=== PATIENT | female | born 1970 | race African-American/Black ===

== ENCOUNTER 2019-12-28 15:36 | Inpatient (IN) | payer OTHER, SELFPAY ==
--- NOTE | ~2019-12-28 | XR_ITS ---
EXAMINATION: XR chest 1V portable INDICATION: Fever and chills TECHNIQUE: Portable AP chest at 1708 hours COMPARISON: None available FINDINGS: The lungs are free of acute opacities. There is no pleural effusion or pneumothorax. The ca rdiomediastinal silhouette is normal. The visualized bones and soft tissues are unremarkable. IMPRESSION: 1. No acute cardiopulmonary abnormality. Reviewed, dictated and finalized at location A.
--- NOTE | ~2019-12-28 | CT_ITS ---
EXAMINATION: CT abdomen pelvis wo con DATE: 12/28/2019 18:33 INDICATION: Pyelonephritis, history of kidney stones TECHNIQUE: Computed tomography (CT) of the abdomen and pelvis was performed without intravenous contr ast. The dose-length product (DLP) was 1134.33 mGy-cm. Automated exposure control and iterative recon struction technique were employed. COMPARISON: None FINDINGS: The lung bases are clear. The heart size is normal. There is a small sliding hiatal hernia. The gallbladder is surgically absent. The liver, spleen, pancreas, and adrenal glands are normal. Th ere is a 2 mm nonobstructing stone of the right kidney lower pole. No stones are present in the urete rs or bladder. There is no hydronephrosis or hydroureter. There is enlargement of the left kidney whe n compared to the right with mild left perinephric fat stranding. No pathologically enlarged abdomina l or pelvic lymph nodes are identified. There is no free intraperitoneal gas or evidence of bowel obs truction. The appendix is normal. Calcified uterine fibroids are noted. There is moderate lumbar spon dylosis. IMPRESSION: 1. CT findings suggestive of left pyelonephritis. 2. Nonobstructing right nephrolithiasis. Reviewed, dictated and finalized at location A.
[2019-12-28 16:02] VITALS: BP 145/71; PULSE 116; RESP 19; TEMP 39.1; O2SAT 99
--- NOTE | 2019-12-28 16:06 | ECG_ITS ---
Measurements Intervals [place] Rate: 114 P: 13 TX: 116 QRS: 140 QRSD: 94 T: -10 QT: 342 QTc: 472 Interpretive Statements SINUS TACHYCARDIA WITH SHORT TX INTERVAL RIGHT AXIS DEVIATION POSSIBLE LEFT ATRIAL ENLARGEMENT BORDERLINE R WAVE PROGRESSION, ANTERIOR LEADS INFERIOR INFARCT, AGE INDETERMINATE BORDERLINE T WAVE ABNORMALITY- ANTERIOR LEADS ABNORMAL ECG Electronically Signed On 12-28-2019 18:20:52 CDT by Umair Licona D.O.
[2019-12-28 16:37] LABS: Basophils Percent Auto 0.3 % (0.2-1.2); Eosinophils Percent Auto 0.2 % (0-4.4); Hemoglobin 12.9 g/dL (12.0-15.0); Immature Granulocyte Absolute 0.07 K/mm3 (0.00-0.031); Immature Granulocyte Percent A 0.5 % (0-0.5); Lymphocytes Absolute Auto 0.82 K/mm3 (0.9-3.2); Lymphocytes Percent Auto 5.6 % (18.3-44.2); Mean Corpuscular HGB Conc 33.1 g/dl (32-36); Mean Corpuscular Hemoglobin 30.6 pg (26-34); Mean Corpuscular Volume 92.4 fl (80-100); Mean Platelet Volume 9.5 fl (7.4-10.4); Monocytes Percent Auto 6.6 % (2.6-8.5); Neutrophils Absolute Auto 12.8 K/mm3 (1.3-6.7); Neutrophils Percent Auto 86.8 % (45.5-73.1); Platelet Count Result 233 k/mm3 (150-375); Red Blood Count 4.22 M/mm3 (4.2-5.4); White Blood Count 14.7 K/mm3 (4.5-10.0)
[2019-12-28 16:43] LABS: Add Urine Microscopic? YES; Amorphous Sediment Urine Few; Appearance Urine Cloudy (Clear); Bacteria Urine Trace /hpf; Bilirubin Urine Negative (Negative); Blood Urine 2+ (Negative); Color Urine Yellow (Yellow); Glucose Urine UA Negative (Negative); Ketones Urine Negative (Negative); Leukocyte Esterase Ur 2+ LEU/UL (Negative); Mucus Urine Rare /lpf; Nitrate Urine Negative (Negative); Protein Urine 2+ mg/dL (Negative); Specific Grav Ur 1.014 (1.001-1.035); Squamous Epithelial Cell Urine Moderate /hpf (Few); Urobilinogen Urine Negative mg/dL (<2.0); WBC Urine 51-75 /hpf
[2019-12-28 16:44] LABS: Prothrombin Time 12.9 Seconds (11.1-14.7)
[2019-12-28 16:45] LABS: Partial Thromboplastin Time 26.4 SECONDS (22.3-36.8)
[2019-12-28 16:46] LABS: Lactic Acid Reflex 2.1 mmol/L (0.7-2.1)
[2019-12-28 16:50] LABS: Alanine Aminotransferase 21 U/L (4-35); Albumin Level 4.4 g/dL (3.5-5.1); Alkaline Phosphatase 69 U/L (38-126); Aspartate Amino Transferase 23 U/L (14-36); Bilirubin,Total 0.9 mg/dL (0.2-1.3); Blood Urea Nitrogen 12 mg/dL (7-17); CRP 2.7 mg/dL (<1.0); Calcium 8.9 mg/dL (8.4-10.2); Carbon Dioxide 26 mmol/L (22-30); Chloride 103 mmol/L (98-107); Estimated CRCL calculation 81 ml/min; Estimated Glomerular Filt Rate > 60; Glucose 158 mg/dL (65-105); Potassium 3.4 mmol/L (3.4-5.0); Sodium 138 mmol/L (137-145)
--- NOTE | 2019-12-28 17:57 | ED.FEVER ---
HPI - Fever General Chief Complaint: Back Pain/Injury Stated Complaint: Chills, Lower Back Pain Time Seen by Provider: 12/28/19 17:38 Source: patient Mode of arrival: EMS Limitations: no limitations History of Present Illness HPI Narrative: Patient is a 49-year-old female who presents to the emergency department with complaint of severe chills and sudden onset of bilateral lower back pain. Patient was at work and got into the break room and suddenly felt very cold. Patient initially thought it was just because of break room is usually cold, but then developed shaking chills and rigors and back pain that was fairly severe. Denies any dysuria, hematuria, urinary frequency, abdominal pain, nausea, vomiting, diarrhea, cough, shortness of breath, or cold symptoms. Patient reports a mild headache currently. She denies any diffuse myalgias but does report she has some mild aching in her shoulders, which she attributes to her significant shaking and rigors. Patient denies any sick contacts at home. 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 Patient has been wearing a mask while she is at work. MD elicited complaint: fever Onset (ago): minute(s) Associated symptoms: chills, rigors, headache and back/flank pain Related Data Home Medications Medication Instructions Recorded Confirmed No Home Medications 12/28/19 12/28/19 Allergies Allergy/AdvReac Type Severity Reaction Status Date / Time Sulfa (Sulfonamide AdvReac Severe Rash Verified 12/28/19 17:01 Antibiotics) Review of Systems Review of Systems: All systems reviewed & are unremarkable except as noted in HPI and below Constitutional: Constitutional: Reports chills and Reports fever(s) ENT: Denies nasal discharge and Denies sore throat Cardiovascular: Cardiovascular: Denies chest pain Respiratory: Respiratory: Denies cough and Denies dyspnea Gastrointestinal: Gastrointestinal: Denies abdominal pain, Denies diarrhea, Denies nausea and Denies vomiting Genitourinary: Genitourinary: Denies hematuria, Denies nocturia, Denies dysuria and Reports flank pain Musculoskeletal: Musculoskeletal: Reports back pain Neurologic: Reports headache(s) [facility] Past Medical History Medical History (Updated 12/28/19 @ 18:14 by Marjorie Evans MD) Kidney stones Surgical History Surgical History (Updated 12/28/19 @ 18:10 by Marjorie Evans MD) History of section History of cholecystectomy History of endometrial ablation History of lithotripsy History of tubal ligation Social History Social History (Updated 12/28/19 @ 18:11 by Marjorie Evans MD) Additional occupation/education comments: Works at [employer] as a [employer] Exam Const: General: cooperative, no acute distress and alert Nutritional Appearance: obese Orientation/consciousness: patient oriented x3 Limitations: no limitations Eyes: Conjunctivae: conjunctivae normal Pupils: Equal, round and reactive pupils present Resp: Effort & Inspection: normal respiratory effort Auscultation: clear to auscultation bilaterally Cardio: Rate: tachycardic Rhythm: regular rhythm GI: GI Palp: Yes Soft to palpation and No Tenderness to palpation present (GI) Auscultation: normal bowel sounds : General: Yes CVA tenderness bilateral Skin: General skin exam: normal color and no rashes or lesions noted Neuro: General: patient oriented x3 Cognition (Neuro): normal cognition Speech: normal speech Extrem: General: normal to inspection, full ROM and no clubbing, cyanosis or edema Psych: Mental Status: mental status grossly normal Affect: normal affect Attitude: cooperative 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 Patient will be sent for CT scan to evaluate for kidney/ureteral stones gi
[2019-12-28] MEDS: LACTATED RINGERS 1,000 ML 999 ML IV CONT (18:22)
[2019-12-28 18:54] VITALS: BP 162/97; PULSE 94; RESP 20; O2SAT 98
[2019-12-28 19:32] LABS: Reflex Lactic Acid Yes or No Add Lactic
[2019-12-28 19:39] VITALS: TEMP 37.1
[2019-12-28 20:09] VITALS: BP 160/88; PULSE 86; RESP 20; O2SAT 99
[2019-12-28 20:10] VITALS: BP 146/95; PULSE 85; RESP 18; TEMP 37.8; O2SAT 98; BMI 37.6
--- NOTE | 2019-12-28 20:10 | ADMGEN ---
This patient, Priscilla Ware, was admitted to 3 [facility] Surg Room 301-01. Patient/family oriented to hospital policies and general routines including ID bracelet, bed and alarms, visiting hours, pain management, procedures, bathroom and other care routines, personal items, smoking policy, room service/diet, and visiting hours. Valuables list has been completed. Information on how to activate the Rapid Response Team has been discussed. Patient/Family are encouraged to report perceived risks to care and to ask questions if they do not understand what they are told or what they should do.
[2019-12-28] MEDS: LACTATED RINGERS 1,000 ML 150 ML IV CONT (20:50)
[2019-12-28 22:00] VITALS: BP 149/98; PULSE 89; RESP 18; TEMP 37.6; O2SAT 96
--- NOTE | 2019-12-28 22:50 | PM.IMHP ---
H&P: HPI History of Present Illness Chief complaint: Sudden chills and low back pain. Narrative: Priscilla Ware is a pleasant 49-year-old female with untreated obstructive sleep apnea and history of urinary tract infections and kidney stones who presented to the emergency department earlier this evening via EMS from her place of employment for evaluation of sudden onset chills and low back pain. She was in her usual state of health this morning and reported to work at [employer]. Not long prior to arrival, she and a co-worker went to the break room to eat lunch. They both noted that it was cold in the break room and put on their coats. The patient then began having shaking chills and what sounds like rigors, followed by severe left-sided low back pain. On arrival to the emergency department she was febrile with a temperature of 102.4?. CT of the abdomen and pelvis demonstrated findings of pyelonephritis and her urinalysis does confirm urinary tract infection. With further questioning, she does mention increased urinary frequency overnight but she denies dysuria, urgency, and hesitancy. She denies abdominal pain, nausea, vomiting, and diarrhea. 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 She denies cough and shortness of breath. She has been wearing a mask at work and is very diligent about keeping her hands clean. No known exposure to those positive for COVID 19. Review of Systems Review of Systems: Narrative: Twelve systems were reviewed with pertinent positives and negatives as per HPI. Complaining of a mild headache at this time. No lightheadedness or dizziness. No chest pain or shortness of breath. Denies anosmia and dysgeusia. She had a CPAP previously for sleep apnea, but stopped using that not long after her brother . She goes on to say that her brother was on life support for quite some time before he passed from a cerebral aneurysm, and she believe she has posttraumatic stress from seeing him on the ventilator, and says she just cannot use the CPAP anymore. Except as documented, all other systems were reviewed and are negative. [facility] Past Medical History Medical History (Updated 12/29/19 @ 00:04 by Annette Drew PA-C) Kidney stones Obstructive sleep apnea Patient does not use her CPAP as detailed in the review of systems. Surgical History Surgical History History of section History of cholecystectomy History of endometrial ablation History of lithotripsy History of tubal ligation Family History Family History (Updated 12/29/19 @ 00:03 by Annette Drew PA-C) Father Acute myocardial infarction Sibling Cerebral aneurysm Social History Social History (Updated 12/28/19 @ 18:11 by Marjorie Evans MD) Smoking status: Never smoker Second hand tobacco smoke exposure: No Alcohol intake: current Substance use: never Other substance usage details: social drinker Additional occupation/education comments: Works at [employer] as a [employer] Spiritual care concerns: No Meds Home Medications and Allergies Home Medications Medication Instructions Recorded Confirmed Type No Home Medications 12/28/19 12/28/19 History Allergies Allergy/AdvReac Type Severity Reaction Status Date / Time Sulfa (Sulfonamide AdvReac Severe Rash Verified 12/28/19 20:48 Antibiotics) Vital Signs Vital Signs - 24 hr 12/28/19 16:02 12/28/19 18:54 12/28/19 19:39 Temperature 102.4 F H 98.8 F Pulse Rate 116 H 94 Respiratory Rate 19 20 Blood Pressure 145/71 H 162/97 H Pulse Oximetry 99 98 12/28/19 20:09 12/28/19 20:10 12/28/19 22:00 Temperature 100.0 F H 99.6 F Pulse Rate 86 85 89 Respiratory Rate 20 18 18 Blood Pressure 160/88 H 146/95 H 149/98 H Pulse Oximetry 99 98 96 Exam Narrative: Exam Narrative: General:
[2019-12-29] MEDS: ACETAMINOPHEN 325 MG TABLET 650 MG PO ×3 (00:13→21:21)
[2019-12-29 00:40] LABS: Hemoglobin A1C 5.6 % (<5.7)
[2019-12-29 03:18] VITALS: TEMP 37.3
[2019-12-29] MEDS: LACTATED RINGERS 1,000 ML 100 ML IV CONT ×2 (05:05→15:17)
[2019-12-29 05:58] VITALS: BP 138/87; PULSE 81; RESP 16; TEMP 37.6; O2SAT 95
[2019-12-29 14:35] VITALS: BP 130/85; PULSE 87; RESP 17; TEMP 36.7; O2SAT 100
--- NOTE | 2019-12-29 16:32 | PM.IMPN ---
Progress Note: A&P Assessment and Plan (1) Sepsis: Qualifiers: Sepsis acute organ dysfunction status: without acute organ dysfunction Sepsis type: sepsis due to unspecified organism Qualified Code(s): A41.9 - Sepsis, unspecified organism Code(s): A41.9 - Sepsis, unspecified organism Status: Acute Assessment and Plan: Present on admission supported by fever, tachycardia, and leukocytosis in the setting of pyelonephritis. Lactic acid level is within normal limits and blood cultures have been obtained and are pending. Vital signs were reviewed and they are stable. 12/29/19 16:32 Patient is a 49-year-old female being treated for pyelonephritis with Rocephin, will follow-up on urine culture and sensitivity further recommendation to follow, is feeling little better abdominal pain is improving currently denies any nausea or vomiting fever or chills wants to go home (2) Pyelonephritis: Code(s): N12 - Tubulo-interstitial nephritis, not specified as acute or chronic Status: Acute Assessment and Plan: She has been started on ceftriaxone, pending urine culture. (3) Hyperglycemia: Code(s): R73.9 - Hyperglycemia, unspecified Status: Acute Assessment and Plan: This is a nonfasting level. Will check BMP in a.m. as well as A1c. Patient A1c 5.6 unlikely patient has diabetes Subjective Date/time seen: 12/29/19 16:32 Patient is a 49-year-old female being treated for pyelonephritis with Rocephin, is feeling little better abdominal pain is improving currently denies any nausea or vomiting fever or chills wants to go home Review of Systems Review of Systems: All systems reviewed & are unremarkable except as noted in HPI and below Exam Narrative: Exam Narrative: Moderately obese Const: General: no acute distress and uncomfortable HENMT: General nose exam: Normal nares present Mouth: Yes moist mucous membranes Eyes: General: appearance normal, both eyes and all related structures Sclera: sclerae normal Neck: Neck: supple Resp: Effort & Inspection: normal respiratory effort Auscultation: clear to auscultation bilaterally Cardio: Rate: regular rate Rhythm: regular rhythm GI: Auscultation: normal bowel sounds Other: Diffusely tender Skin: General skin exam: normal color Neuro: Speech: normal speech Sensory Exam: normal sensation Extrem: General: normal to inspection Psych: Affect: Anxious affect present Objective Data Vital Signs Vital Signs: Vital Signs - 24 hr 12/28/19 18:54 12/28/19 19:39 12/28/19 20:09 Temperature 98.8 F Pulse Rate 94 86 Respiratory Rate 20 20 Blood Pressure 162/97 H 160/88 H Pulse Oximetry 98 99 12/28/19 20:10 12/28/19 22:00 12/29/19 03:18 Temperature 100.0 F H 99.6 F 99.2 F Pulse Rate 85 89 Respiratory Rate 18 18 Blood Pressure 146/95 H 149/98 H Pulse Oximetry 98 96 12/29/19 05:58 12/29/19 14:35 Temperature 99.7 F H 98.0 F Pulse Rate 81 87 Respiratory Rate 16 17 Blood Pressure 138/87 130/85 Pulse Oximetry 95 100 Intake/Output Intake/Output: Intake & Output 12/26/19 12/27/19 12/28/19 12/29/19 23:59 23:59 23:59 23:59 Intake Total 1150 2800 Output Total 1300 Balance 1150 1500 Meds/Results Medications: Active Medications Generic Name Dose Route Start Last Admin Trade Name Freq PRN Reason Stop Dose Admin Acetaminophen 650 mg 12/28/19 18:03 12/29/19 11:52 Tylenol Tablet PO 650 mg Q4H PRN Administration Mild Pain (1-3) or Fever Ceftriaxone Sodium/Dextrose 1 gm in 50 mls @ 100 mls/hr 12/29/19 18:00 Rocephin 1 Gm/D5w 50 Ml IVPB Q24H CHICHO Lactated Ringer's 1,000 mls @ 100 mls/hr 12/28/19 18:05 12/29/19 15:17 Lr - Lactated Ringers Iv IV CONT 100 mls/hr
[2019-12-29 22:00] VITALS: BP 147/73; PULSE 88; RESP 20; TEMP 37.2; O2SAT 100
[2019-12-30] MEDS: LACTATED RINGERS 1,000 ML 100 ML IV CONT (01:42)
[2019-12-30 06:00] VITALS: BP 162/92; PULSE 95; RESP 20; TEMP 37.2; O2SAT 100
[2019-12-30 06:15] LABS: Hematocrit 37.8 % (37.0-47.0); Hemoglobin 12.6 g/dL (12.0-15.0); Mean Corpuscular HGB Conc 33.3 g/dl (32-36); Mean Corpuscular Hemoglobin 31.2 pg (26-34); Mean Corpuscular Volume 93.6 fl (80-100); Mean Platelet Volume 9.7 fl (7.4-10.4); Platelet Count Result 216 k/mm3 (150-375); Red Blood Count 4.04 M/mm3 (4.2-5.4); Red Cell Distribution Width 12.9 % (11.5-14.5); White Blood Count 7.9 K/mm3 (4.5-10.0)
[2019-12-30 06:40] LABS: Blood Urea Nitrogen 9 mg/dL (7-17); Calcium 9.1 mg/dL (8.4-10.2); Carbon Dioxide 29 mmol/L (22-30); Chloride 104 mmol/L (98-107); Estimated CRCL calculation 96 ml/min; Estimated Glomerular Filt Rate > 60; Glucose 111 mg/dL (65-105); Potassium 3.6 mmol/L (3.4-5.0); Sodium 138 mmol/L (137-145)
[2019-12-30] MEDS: ACETAMINOPHEN 325 MG TABLET 650 MG PO ×2 (09:31→21:57)
--- NOTE | 2019-12-30 11:13 | PM.IMPN ---
Progress Note: A&P Assessment and Plan (1) Sepsis: Qualifiers: Sepsis acute organ dysfunction status: without acute organ dysfunction Sepsis type: sepsis due to unspecified organism Qualified Code(s): A41.9 - Sepsis, unspecified organism Code(s): A41.9 - Sepsis, unspecified organism Status: Acute Assessment and Plan: Present on admission supported by fever, tachycardia, and leukocytosis in the setting of pyelonephritis. Lactic acid level is within normal limits and blood cultures have been obtained and are pending. Vital signs were reviewed and they are stable. 12/30/19 11:13 Patient is a 49-year-old female being treated for pyelonephritis with Rocephin, urine culture is growing gram-negative bacilli will follow-up on identification and sensitivity meanwhile will continue Rocephin, patient will need IV antibiotics for total of 5 days for pyelonephritis further recommendation to follow, is feeling little better abdominal pain is improving currently denies any nausea or vomiting fever or chills wants to go home, complains of head she is attributes to unable to sleep in the hospital (2) Pyelonephritis: Code(s): N12 - Tubulo-interstitial nephritis, not specified as acute or chronic Status: Acute Assessment and Plan: She has been started on ceftriaxone, urine culture is growing gram-negative bacilli will follow-up identification and sensitivity will continue present management. (3) Hyperglycemia: Code(s): R73.9 - Hyperglycemia, unspecified Status: Acute Assessment and Plan: This is a nonfasting level. Will check BMP in a.m. as well as A1c. Patient A1c 5.6 unlikely patient has diabetes Subjective Date/time seen: 12/30/19 11:13 Patient is a 49-year-old female being treated for pyelonephritis with Rocephin, urine culture is growing gram-negative bacilli will follow-up on identification and sensitivity meanwhile will continue Rocephin, patient will need IV antibiotics for total of 5 days for pyelonephritis further recommendation to follow, is feeling little better abdominal pain is improving currently denies any nausea or vomiting fever or chills wants to go home, complains of head she is attributes to unable to sleep in the hospital Review of Systems Review of Systems: All systems reviewed & are unremarkable except as noted in HPI and below Exam Narrative: Exam Narrative: Moderately obese Const: General: no acute distress and uncomfortable HENMT: General nose exam: Normal nares present Mouth: Yes moist mucous membranes Eyes: General: appearance normal, both eyes and all related structures Sclera: sclerae normal Neck: Neck: supple Resp: Effort & Inspection: normal respiratory effort Auscultation: clear to auscultation bilaterally Cardio: Rate: regular rate Rhythm: regular rhythm GI: Auscultation: normal bowel sounds Other: Diffusely tender Skin: General skin exam: normal color Neuro: Speech: normal speech Sensory Exam: normal sensation Extrem: General: normal to inspection Psych: Affect: Anxious affect present Objective Data Vital Signs Vital Signs: Vital Signs - 24 hr 12/29/19 14:35 12/29/19 22:00 12/30/19 06:00 Temperature 98.0 F 98.9 F 99.0 F Pulse Rate 87 88 95 Respiratory Rate 17 20 20 Blood Pressure 130/85 147/73 H 162/92 H Pulse Oximetry 100 100 100 Intake/Output Intake/Output: Intake & Output 12/27/19 12/28/19 12/29/19 12/30/19 23:59 23:59 23:59 23:59 Intake Total 1150 4590 1862 Output Total 2300 450 Balance 1150 2290 1412 Meds/Results Medications: Active Medications Generic Name Dose Route Start Last Admin Trade Name Freq PRN Reason Stop Dose Admin Acetamin
[2019-12-30 14:40] VITALS: BP 149/93; PULSE 88; RESP 16; TEMP 36.6; O2SAT 100
[2019-12-30 22:00] VITALS: BP 140/90; PULSE 83; RESP 20; TEMP 37.1; O2SAT 100
[2019-12-31 06:00] VITALS: BP 140/90; PULSE 65; RESP 18; TEMP 36.3; O2SAT 99
[2019-12-31 06:06] LABS: Hematocrit 35.7 % (37.0-47.0); Hemoglobin 11.8 g/dL (12.0-15.0); Mean Corpuscular HGB Conc 33.1 g/dl (32-36); Mean Corpuscular Hemoglobin 30.3 pg (26-34); Mean Corpuscular Volume 91.8 fl (80-100); Mean Platelet Volume 8.8 fl (7.4-10.4); Platelet Count Result 211 k/mm3 (150-375); Red Blood Count 3.89 M/mm3 (4.2-5.4); Red Cell Distribution Width 12.6 % (11.5-14.5); White Blood Count 5.6 K/mm3 (4.5-10.0)
[2019-12-31 06:29] LABS: Blood Urea Nitrogen 8 mg/dL (7-17); Carbon Dioxide 28 mmol/L (22-30); Chloride 105 mmol/L (98-107); Estimated CRCL calculation 96 ml/min; Estimated Glomerular Filt Rate > 60; Glucose 106 mg/dL (65-105); Potassium 3.8 mmol/L (3.4-5.0); Sodium 138 mmol/L (137-145)
--- NOTE | 2019-12-31 13:22 | PM.DS ---
DS: Admitting Diagnosis Admitting Diagnosis Admitting Diagnosis: DOS 01/01/2020 Sepsis, unspecified organism DS: Discharge Diagnosis Discharge Diagnosis (1) Sepsis: Qualifiers: Sepsis acute organ dysfunction status: without acute organ dysfunction Sepsis type: sepsis due to unspecified organism Qualified Code(s): A41.9 - Sepsis, unspecified organism Code(s): A41.9 - Sepsis, unspecified organism Status: Acute Assessment and Plan: Patient is a 49-year-old female being treated for pyelonephritis with Rocephin, urine culture is growing gram-negative bacilli will follow-up on identification and sensitivity meanwhile will continue Rocephin, patient will need IV antibiotics for total of 5 days for pyelonephritis, which she received in the hospital. Pt is asymptomatic, vitals are stable. Pt is keen to go home. WCC are normal. (2) Pyelonephritis: Code(s): N12 - Tubulo-interstitial nephritis, not specified as acute or chronic Status: Acute Assessment and Plan: She has been started on ceftriaxone, urine culture is growing Ecoli as well as blood cultures. Pt to continue course of ciprofloxacin on dischrage and have rpt UC in 2-3 weeks time. (3) Hyperglycemia: Code(s): R73.9 - Hyperglycemia, unspecified Status: Acute Assessment and Plan: Patient A1c 5.6 unlikely to be diabetes DS: Summary Time Spent with Patient Time attestation: Total time spent providing and/or coordinating discharge services:40 minutes on day of discharge Exam Narrative: Exam Narrative: Moderately obese Const: General: no acute distress and uncomfortable Resp: Effort & Inspection: normal respiratory effort Auscultation: clear to auscultation bilaterally Cardio: Rate: regular rate Rhythm: regular rhythm GI: Auscultation: normal bowel sounds Other: Non tender Skin: General skin exam: normal color Neuro: Speech: normal speech Sensory Exam: normal sensation Extrem: General: normal to inspection Psych: Affect: Anxious affect present DS: Data Data Completed and Pending Labs on day of discharge: Labs from last 24 hours 12/31/19 12/31/19 05:49 05:49 WBC 5.6 RBC 3.89 L Hgb 11.8 L Hct 35.7 L MCV 91.8 MCH 30.3 MCHC 33.1 RDW 12.6 Plt Count 211 MPV 8.8 Sodium 138 Potassium 3.8 Chloride 105 Carbon Dioxide 28 BUN 8 Creatinine 0.70 Estim Creat Clear Calc 96 Estimated GFR > 60 Glucose 106 H Calcium 9.0 Preliminary micro results at discharge 12/28/19 17:19 Blood Culture - Preliminary Blood Escherichia Coli 12/28/19 16:17 Blood Culture - Preliminary Blood Discharge Plan Discharge Attending physician on discharge: Noelle Stokes Consulting providers: Naresh De León Discharging Clinician: Noelle Stokes Anticipated Discharge Date/Time: 01/01/20 10:00 Patient Disposition: Home, Self-Care Activity: as tolerated Diet: regular Discharge Instructions: Rpt UC in 2 weeks time Patient Instructions: Antibiotic Form, Urinary Tract Infection in Women (DC), Pain Management (DC) Stand Alone Forms: General Discharge Information Follow-up/Referrals: BobbyMiles MD [Primary Care Provider] - Naresh De León MD [Physician] - Discharge Medications: New ciprofloxacin HCl 500 mg tablet 500 mg PO Q12H Qty: 20 RF: 0 No Action No Home Medications RF: 0 Date of admission: 12/28/19 18:13 Primary Care Provider: BobbyMiles Admitting Provider: Laura Lamas Attending physician on admission: Laura Lamas Condition: Stable
--- NOTE | 2019-12-31 13:29 | PM.IMPN ---
Progress Note: A&P Assessment and Plan (1) Sepsis: Qualifiers: Sepsis acute organ dysfunction status: without acute organ dysfunction Sepsis type: sepsis due to unspecified organism Qualified Code(s): A41.9 - Sepsis, unspecified organism Code(s): A41.9 - Sepsis, unspecified organism Status: Acute Assessment and Plan: Patient is a 49-year-old female being treated for pyelonephritis with Rocephin, urine culture is ecoli along with her blood cultures. I will continue Rocephin, patient will need IV antibiotics for total of 5 days for pyelonephritis, which will be tomorrow. (2) Pyelonephritis: Code(s): N12 - Tubulo-interstitial nephritis, not specified as acute or chronic Status: Acute Assessment and Plan: She has been started on ceftriaxone, urine culture and blood culture is positive for Ecoli (3) Hyperglycemia: Code(s): R73.9 - Hyperglycemia, unspecified Status: Acute Assessment and Plan: Patient A1c 5.6 unlikely patient has diabetes Subjective Date/time seen: 12/31/19 13:29 Interval history: Priscilla Ware is a pleasant 49-year-old female with untreated obstructive sleep apnea and history of urinary tract infections and kidney stones who presented to the emergency department earlier this evening via EMS from her place of employment for evaluation of sudden onset chills and low back pain. I will continue Rocephin, patient will need IV antibiotics for total of 5 days for pyelonephritis, which will be tomorrow. Exam Narrative: Exam Narrative: Moderately obese Resp: Effort & Inspection: normal respiratory effort Auscultation: clear to auscultation bilaterally Cardio: Rate: regular rate Rhythm: regular rhythm GI: Auscultation: normal bowel sounds Other: Some flank pain Skin: General skin exam: normal color Neuro: Speech: normal speech Sensory Exam: normal sensation Extrem: General: normal to inspection Psych: Affect: Anxious affect present Objective Data Vital Signs Vital Signs: Vital Signs - 24 hr 12/30/19 14:40 12/30/19 22:00 12/31/19 06:00 Temperature 36.6 C 37.1 C 36.3 C L Pulse Rate 88 83 65 Respiratory Rate 16 20 18 Blood Pressure 149/93 H 140/90 140/90 Pulse Oximetry 100 100 99 Intake/Output Intake/Output: Intake & Output 12/28/19 12/29/19 12/30/19 12/31/19 23:59 23:59 23:59 23:59 Intake Total 1150 4590 4542 860 Output Total 2300 2450 800 Balance 1150 2290 2092 60 Meds/Results Medications: Active Medications Generic Name Dose Route Start Last Admin Trade Name Freq PRN Reason Stop Dose Admin Acetaminophen 650 mg 12/28/19 18:03 12/30/19 21:57 Tylenol Tablet PO 650 mg Q4H PRN Administration Mild Pain (1-3) or Fever Ceftriaxone Sodium/Dextrose 1 gm in 50 mls @ 100 mls/hr 12/29/19 18:00 12/30/19 17:44 Rocephin 1 Gm/D5w 50 Ml IVPB Infused Q24H [facility] Infusion Radiology Results: ITS Impressions Chest X-Ray 12/28/19 17:22 IMPRESSION: 1. No acute cardiopulmonary abnormality. Abdomen/Pelvis CT 12/28/19 18:39 IMPRESSION: 1. CT findings suggestive of left pyelonephritis. 2. Nonobstructing right nephrolithiasis. Labs Labs: Laboratory Results - last 24 hr 12/31/19 12/31/19 05:49 05:49 WBC 5.6 RBC 3.89 L Hgb 11.8 L Hct 35.7 L MCV 91.8 MCH 30.3 MCHC 33.1 RDW 12.6 Plt Count 211 MPV 8.8 Sodium 138 Potassium 3.8 Chloride 105 Carbon Dioxide 28 BUN 8 Creatinine 0.70 Estim Creat Clear Calc 96 Estimated GFR > 60 Glucose 106 H Calcium 9.0 Quality VTE Prophylaxis VTE prophylaxis: mechanical ordered
[2019-12-31 14:00] VITALS: BP 160/90; PULSE 74; RESP 16; TEMP 36.4; O2SAT 100
[2019-12-31] MEDS: ACETAMINOPHEN 325 MG TABLET 650 MG PO (17:10)
[2019-12-31 21:42] VITALS: BP 149/97; PULSE 86; RESP 16; TEMP 36.6; O2SAT 100
[2020-01-01 06:00] VITALS: BP 136/92; PULSE 73; RESP 18; TEMP 36.7; O2SAT 93
[2020-01-01 06:27] LABS: Hematocrit 37.8 % (37.0-47.0); Hemoglobin 12.5 g/dL (12.0-15.0); Mean Corpuscular HGB Conc 33.1 g/dl (32-36); Mean Corpuscular Hemoglobin 30.5 pg (26-34); Mean Corpuscular Volume 92.2 fl (80-100); Mean Platelet Volume 9.3 fl (7.4-10.4); Platelet Count Result 247 k/mm3 (150-375); Red Cell Distribution Width 12.6 % (11.5-14.5); White Blood Count 5.8 K/mm3 (4.5-10.0)
[2020-01-01 06:43] LABS: Blood Urea Nitrogen 8 mg/dL (7-17); Calcium 9.1 mg/dL (8.4-10.2); Carbon Dioxide 29 mmol/L (22-30); Chloride 104 mmol/L (98-107); Estimated CRCL calculation 96 ml/min; Estimated Glomerular Filt Rate > 60; Glucose 103 mg/dL (65-105); Sodium 138 mmol/L (137-145)
== END 2020-01-01 11:22 | disposition home or self-care (01) | DRG 720 ==
LOC: ANHED 18:06 → ANH3MEDSUR 18:14
PROVIDERS: Physician Assistant; Admitting Provider Family Medicine; Emergency Provider Emergency Medicine; PCP Internal Medicine; Visit Provider Family Medicine
DX: A41.9 Sepsis, unspecified organism (principal); N12 Tubulo-interstitial nephritis, not specified as acute or chronic; R73.9 Hyperglycemia, unspecified; G47.33 Obstructive sleep apnea (adult) (pediatric); Z87.442 Personal history of urinary calculi
CPT/HCPCS: 36415; 71045; 74176; 80048; 80053; 81001; 83036; 83605; 85025; 85027; 85610; 85730; 86140; 87040; 87077; 87086; 87088; 87186; 93005; 96361; 96365; 96367; 99285; A9270; J0131; J0696; J7120

== ENCOUNTER 2020-02-28 10:27 | Emergency (ER) | payer OTHER, SELFPAY ==
[2020-02-28] VITALS (7 sets, daily range): BP systolic 104–126; BP diastolic 68–85; PULSE 73–87; RESP 16–24; TEMP 37; O2SAT 94–97
--- NOTE | ~2020-02-28 | CT_ITS ---
EXAMINATION: CT brain wo con INDICATION: Syncope COMPARISON: 03/19/2017 TECHNIQUE: Standard unenhanced head CT. The dose-length product (DLP) was 605.33 mGy-cm. The mA was a djusted according to patient size. Iterative reconstruction technique was employed. FINDINGS: There is no intracranial hemorrhage, acute infarction, or abnormal mass lesion. The ventric les are normal. There is no abnormal mass effect or midline shift. The harris-white matter differentiat ion is normal. The basal cisterns are patent. The orbits are normal. The paranasal sinuses, mastoids and calvarium are normal. IMPRESSION: 1. No acute intracranial abnormality. Reviewed, dictated and finalized at location A.
--- NOTE | ~2020-02-28 | XR_ITS ---
EXAMINATION: XR chest 2V DATE: 02/28/2020 12:16 INDICATION: Weakness TECHNIQUE: AP and lateral views of the chest are obtained. COMPARISON: 12/28/2019 FINDINGS: The lungs are free of acute opacities. There is no pleural effusion or pneumothorax. The ca rdiomediastinal silhouette is normal. There is mild thoracic spondylosis. Surgical clips in the right upper quadrant are likely from prior cholecystectomy. IMPRESSION: 1. No acute cardiopulmonary abnormality. Reviewed, dictated and finalized at location A.
--- NOTE | 2020-02-28 10:59 | ECG_ITS ---
Measurements Intervals [place] Rate: 82 P: 32 WV: 163 QRS: 133 QRSD: 90 T: 5 QT: 351 QTc: 411 Interpretive Statements SINUS RHYTHM RIGHT AXIS DEVIATION BORDERLINE R WAVE PROGRESSION, ANTERIOR LEADS INFERIOR INFARCT, AGE INDETERMINATE BORDERLINE T WAVE ABNORMALITY- ANTERIOR LEADS BASELINE ARTIFACT- II, III, AVF ABNORMAL ECG Electronically Signed On 02-28-2020 13:00:13 CDT by Umair Licona D.O.
--- NOTE | 2020-02-28 11:24 | ED.SYNCOPE ---
HPI - Syncope General Chief Complaint: Syncope <Stephy Leon PA-C - Last Filed: 02/28/20 14:42> Stated Complaint: syncopal episode <BERT Joseph Last Filed: 02/28/20 14:42> Time Seen by Provider: 02/28/20 11:07 <BERT Joseph Last Filed: 02/28/20 14:42> Source: patient <BERT Joseph Last Filed: 02/28/20 14:42> Mode of arrival: EMS <BERT Joseph Last Filed: 02/28/20 14:42> Limitations: no limitations <BERT Joseph Last Filed: 02/28/20 14:42> History of Present Illness HPI narrative: This is a 49 year old female that presents to the ER for pre-syncopal episode today. 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 Reports she started to feel lightheaded. Reports she vomited a couple of times. Reports she had to sit down and felt like she was going to lose consciousness. Did not ever actually lose consciousness. EMS was called who brought her to the ED. Currently reports generalized weakness. Denies fever, chest pain, shortness of breath, abdominal pain, or dysuria. <BERT Joseph Last Filed: 02/28/20 14:42> Related Data Allergies/Adverse Reactions: Allergies Allergy/AdvReac Type Severity Reaction Status Date / Time Sulfa (Sulfonamide AdvReac Severe Rash Verified 02/28/20 10:43 Antibiotics) <Stephy Leon PA-C - Last Filed: 02/28/20 14:42> Review of Systems Review of Systems: Narrative: CONSTITUTIONAL: Denies fever CARDIOVASCULAR: Denies chest pain, palpitations RESPIRATORY: Denies dyspnea. GASTROINTESTINAL: Reports nausea and vomiting. Denies abdominal pain GENITOURINARY: Denies dysuria NEUROLOGIC: Reports headache, weakness. Denies numbness <BERT Joseph Last Filed: 02/28/20 14:42> All systems reviewed & are unremarkable except as noted in HPI and below <BERT Joseph Last Filed: 02/28/20 14:42> [facility] Past Medical History Medical History: Medical History (Updated 02/28/20 @ 14:41 by Stephy Leon PA-C) Kidney stones Obstructive sleep apnea Patient does not use her CPAP as detailed in the review of systems. <Stephy Leon PA-C - Last Filed: 02/28/20 14:42> Family History Family History: Family History (Updated 12/29/19 @ 00:03 by Annette Drew PA-C) Father Acute myocardial infarction Sibling Cerebral aneurysm <Stephy Leon PA-C - Last Filed: 02/28/20 14:42> Social History Social History: Social History (Updated 12/28/19 @ 18:11 by Marjorie Evans MD) Smoking status: Never smoker Second hand tobacco smoke exposure: No Alcohol intake: current Substance use: never Other substance usage details: social drinker Additional occupation/education comments: Works at [id number] as a [place] Spiritual care concerns: No <Stephy Leon PA-C - Last Filed: 02/28/20 14:42> Exam Narrative: Exam Narrative: GENERAL: Well-appearing, obese, and in no acute distress. HEAD: Normocephalic, atraumatic. EYES: PERRLA and EOMI. ENT: Nares clear, no rhinorrhea or epistaxis. Mucous membranes moist. Oropharynx without tonsillar hypertrophy exudate or other lesions. Bilateral TMs pearly harris non-bulging NECK: Supple. No adenopathy or masses. No midline cervical spine tenderness CHEST: Clear to auscultation. No respiratory distress. No wheezes rales or rhonchi HEART: Regular rate and rhythm. No murmur heard. Normal peripheral pulses. ABDOMEN: Soft, nontender, nondistended, normal active bowel sounds. EXTREMITIES: Normal range of motion. No edema. Strength equal in bilateral upper and lower extremities (5/5) SKIN: Warm, dry, no rash. NEURO: No focal deficits. Alert and oriented x3. Cranial nerves II through XII grossly intact. Normal [id number] PSYCH: Normal mood and affect <Stephy Leon PA-C - Last Filed: 02/28/20 14:42> Course Vital Signs Vital signs: Vital Signs Temperature 98.6 F 02/28/20 10:34 Respiratory Rate
[2020-02-28 11:28] LABS: Glucose Point of Care 103 (65-105)
[2020-02-28 11:38] LABS: Basophils Percent Auto 0.4 % (0.2-1.2); Hematocrit 38.6 % (37.0-47.0); Hemoglobin 12.7 g/dL (12.0-15.0); Immature Granulocyte Absolute 0.01 K/mm3 (0.00-0.031); Immature Granulocyte Percent A 0.2 % (0-0.5); Lymphocytes Percent Auto 18.9 % (18.3-44.2); Mean Corpuscular HGB Conc 32.9 g/dl (32-36); Mean Corpuscular Hemoglobin 30.5 pg (26-34); Mean Corpuscular Volume 92.6 fl (80-100); Mean Platelet Volume 9.3 fl (7.4-10.4); Monocytes Absolute Auto 0.6 K/mm3 (0.1-0.6); Monocytes Percent Auto 11.5 % (2.6-8.5); Neutrophils Absolute Auto 3.7 K/mm3 (1.3-6.7); Platelet Count Result 145 k/mm3 (150-375); Red Blood Count 4.17 M/mm3 (4.2-5.4); Red Cell Distribution Width 13.2 % (11.5-14.5); White Blood Count 5.3 K/mm3 (4.5-10.0)
[2020-02-28] MEDS: ONDANSETRON INJ 4 MG/2 ML VIAL IV PUSH (11:43)
[2020-02-28] MEDS: SODIUM CHLORIDE 0.9% IV 1,000 ML 999 ML IV CONT (11:43)
[2020-02-28 11:55] LABS: Alanine Aminotransferase 39 U/L (4-35); Albumin Level 4.1 g/dL (3.5-5.1); Alkaline Phosphatase 54 U/L (38-126); Aspartate Amino Transferase 35 U/L (14-36); Bilirubin,Total 0.6 mg/dL (0.2-1.3); Blood Urea Nitrogen 12 mg/dL (7-17); Calcium 8.9 mg/dL (8.4-10.2); Carbon Dioxide 28 mmol/L (22-30); Chloride 101 mmol/L (98-107); Estimated CRCL calculation 60 ml/min; Estimated Glomerular Filt Rate > 60; Glucose 105 mg/dL (65-105); Lipase 60 U/L (23-300); Potassium 3.8 mmol/L (3.4-5.0); Sodium 138 mmol/L (137-145)
[2020-02-28 11:56] LABS: Creatine Kinase 145 U/L (30-135)
[2020-02-28 12:17] LABS: Add Urine Microscopic? YES; Appearance Urine Cloudy (Clear); Bacteria Urine Trace /hpf; Bilirubin Urine Negative (Negative); Blood Urine Negative (Negative); Color Urine Amber (Yellow); Glucose Urine UA Negative (Negative); Ketones Urine Negative (Negative); Leukocyte Esterase Ur Trace LEU/UL (Negative); Mucus Urine Heavy /lpf; Nitrate Urine Negative (Negative); Protein Urine 2+ mg/dL (Negative); Specific Grav Ur 1.026 (1.001-1.035); Squamous Epithelial Cell Urine Many /hpf (Few); Urobilinogen Urine Negative mg/dL (<2.0)
== END 2020-02-28 15:21 | disposition home or self-care (01) ==
PROVIDERS: Physician Assistant; Emergency Provider General Practice
DX: N30.00 Acute cystitis without hematuria (principal); E86.0 Dehydration; G47.33 Obstructive sleep apnea (adult) (pediatric); Z87.442 Personal history of urinary calculi
CPT/HCPCS: 36415; 70450; 71046; 80053; 81001; 81025; 82550; 82948; 83690; 85025; 87086; 87088; 93005; 96361; 96365; 96375; 99284; J0131; J2405; J7030